=== PATIENT | male | born 1985 | race Two or more races ===

== ENCOUNTER 2020-04-07 10:35 | Emergency (ER) | payer OTHER ==
[2020-04-07 10:52] VITALS: BP 120/60; PULSE 57; TEMP 97.3; BMI 24.3
--- OUTSIDE RECORDS SUMMARY | 2020-04-07 10:54 | XMS ---
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 Range Interpretation Code Description Data Source(s) Mean blood 99 mm[Hg] 99 mm[Hg] [place] [facility] - pressure [facility] Peripheral Pulse 77 bpm Normal (applies to 77 bpm [place] [facility] - Rate non-numeric results) [facility] Diastolic blood 82 mm[Hg] Normal (applies to 82 mm[Hg] [place] [facility] - pressure non-numeric results) [facility] Systolic blood 133 mm[Hg] Normal (applies to 133 mm[Hg] [place] [facility] - pressure non-numeric results) [facility] Respiratory rate 18 br/min Normal (applies to 18 br/min [place] [facility] - non-numeric results) [facility] Body temperature - 98.2 [degF] 98.2 [degF] [place] [facility] - Temporal artery [facility] Mean blood 107 mm[Hg] 107 mm[Hg] [place] [facility] - pressure [facility] Diastolic blood 86 mm[Hg] Normal (applies to 86 mm[Hg] [place] [facility] - pressure non-numeric results) [place] [facility] Systolic blood 148 mm[Hg] Above high normal 148 mm[Hg] [place] [facility] - pressure [facility] Respiratory rate 18 br/min Normal (applies to 18 br/min [place] [facility] - non-numeric results) [place] [facility] Peripheral Pulse 72 bpm Normal (applies to 72 bpm [place] [facility] - Rate non-numeric results) [facility] Diastolic blood 68 mm[Hg] Normal (applies to 68 mm[Hg] [place] [facility] - pressure non-numeric results) [facility] Systolic blood 135 mm[Hg] Normal (applies to 135 mm[Hg] [place] [facility] - pressure non-numeric results) [place] [facility] Respiratory rate 19 br/min Normal (applies to 19 br/min [place] [facility] - non-numeric results) [facility] Peripheral Pulse 55 bpm Below low normal 55 bpm [place] [facility] - Rate [facility] Mean blood 90 mm[Hg] 90 mm[Hg] [place] [facility] - pressure [facility] Body temperature - 98.5 [degF] 98.5 [degF] [facility] - Temporal artery [facility] Heart rate Cardiac 83 bpm Normal (applies to 83 bpm [place] [facility] - apex by by non-numeric results) [facility] ter Body surface area 1.97 1.97 [place] [facility] - [facility] Body weight 82 kg 82 kg [place] [facility] - Measured [facility] Body height 170 cm 170 cm [facility] Body temperature - 98.4 [degF] 98.4 [degF] [facility] - Temporal artery [facility] Body weight 82.000 kg 82.000 kg [place] [facility] - Measured [facility] Body height 170.000 cm 170.000 cm [facility] r Respiratory rate 20 br/min Normal (applies to 20 br/min [place] [facility] - non-numeric results) [facility] Diastolic blood 58 mm[Hg] Below low normal 58 mm[Hg] [place] [facility] - pressure [facility] Systolic blood 130 mm[Hg] Normal (applies to 130 mm[Hg] [place] [facility] - pressure non-numeric results) [place] Peripheral Pulse 88 bpm Normal (applies to 88 bpm [place] [facility] - Rate non-numeric results) [facility] Mean blood 82 mm[Hg] 82 mm[Hg] [place] [facility] - pressure [facility] Body weight 75.000 kg 75.000 kg [place] [facility] - Measured [facility] Body height 176.000 cm 176.000 cm [facility] an [facility] Body temperature - 99.5 [degF] 99.5 [degF] [facility] - Temporal artery [facility] Mean blood 109 mm[Hg] 109 mm[Hg] [place] [facility] - pressure [facility] Body height 176 cm 176 cm [place] [facility] - [facility] Respiratory rate 20 br/min Normal (applies to 20 br/min [place] [facility] - non-numeric results) [facility] Peripheral Pulse 93 bpm Normal (applies to 93 bpm [place] [facility] - Rate non-numeric results) [facility] Diastolic blood 89 mm[Hg] Normal (applies to 89 mm[Hg] [place] [facility] - pressure non-numeric results) [facility] Systolic blood 149 mm[Hg] Above high normal 149 mm[Hg] [place] [facility] - pressure [facility] Body surface area 1.91 1.91 [place] [facility] - [facility] Body weight 75 kg 75 kg [place] [facility] - Measured [facility] Peripheral Pulse 72 bpm Normal (applies to 72 bpm [place] [facility] - Rate non-numeric results) [facility] Respiratory rate 18 br/min Normal (applies to 18 br/min [place] [facility] - non-numeric results) [facility] Body temperature - 97.1 [degF] 97.1 [degF] [facility] Mean blood 94 mm[Hg] 94 mm[Hg] [place] [facility] - pressure [facility] Diastolic blood 74 mm[Hg] Normal (applies to 74 mm[Hg] [place] [facility] - pressure non-numeric results) [place] Systolic blood 134 mm[Hg] Normal (applies to 134 mm[Hg] [place] [facility] - pressure non-numeric results) [facility] Body temperature - 98.2 [degF] 98.2 [degF] [facility] Temporal artery [facility] Body height 175 cm 175 cm [facility] Body weight 82 kg 82 kg [facility] an - Measured [facility] Body surface area 2 2 [facility] Peripheral Pulse 72 bpm Normal (applies to 72 bpm [place] [facility] - Rate non-numeric results) [place] Diastolic blood 72 mm[Hg] Normal (applies to 72 mm[Hg] [place] [facility] - pressure non-numeric results) [place] Systolic blood 134 mm[Hg] Normal (applies to 134 mm[Hg] [place] [facility] - pressure non-numeric results) [facility] Mean blood 93 mm[Hg] 93 mm[Hg] [facility] Body weight 82.000 kg 82.000 kg [facility] Measured [facility] Body height 175.000 cm 175.000 cm [facility] Patient Treatment Plan of Care Planned Activity Planned Date Details Description Data Source (s) No Known Medications 01/21/2019 [place] [facility] - 06:48:34 PM EDT [facility] Lomotil oral tablet 12/08/2018 [facility] - 12:54:34 AM EDT [facility] Zofran 4 mg oral tablet 12/08/2018 [place] [facility] - 12:54:27 AM EDT [facility] Cyclobenzaprine 03/17/2018 [facility] Ma lalit - hydrochloride 10 MG Oral 04:45:39 PM EDT [facility] Ibuprofen 800 MG Oral 03/17/2018 [facility] - Tablet 04:45:34 PM EDT [facility]
--- NOTE | 2020-04-07 11:11 | PDOC ---
History of Present Illness - General History Source: Patient Exam Limitations: No Limitations - History of Present Illness Initial Comments: 04/07/20 11:09 34-year-old male [id number] denies past medical history presents complaining of right fourth finger injury 2 days ago. He accidentally broke a glass with his hand and is concerned he may have glass on his finger. Denies any other complaint or injury. ROS: as above PE: GENERAL: well-appearing, NAD HEAD: NCAT EYES: Pupils equal, round and reactive to light, sclera anicteric, conjunctiva clear ENT: pharynx: no erythema, no exudate, uvula midline NECK: supple CHEST: nontender RESP: clear, no w/r/r CARDIO: rrr, no m/g/r ABD: +BS, soft, nontender, non distended BACK: no midline spinal ttp, no CVAT EXTREMITIES: Normal range of motion, right fourth subungual hematoma NEUROLOGICAL: Normal speech, normal gait SKIN: Warm, Dry 04/07/20 11:43 Is this a multiple visit Asthma Patient?: No <Roxana Del Cid - Last Filed: 04/07/20 11:43> <Trista Thorne - Last Filed: 04/07/20 11:58> - General Chief Complaint: Injury Stated Complaint: FINGER INJURY Time Seen by Provider: 04/07/20 10:53 Past History - Medical History COPD: No - Psycho-Social/Smoking History Smoking History: Current every day smoker Have you smoked in the past 12 months: Yes Number of Cigarettes Smoked Daily: 5 Information on smoking cessation initiated: Yes - Substance Abuse Hx (Audit-C & DAST Scrn) How often the patient has a drink containing alcohol: Never Score: In Men: 4 or > Positive; In Women: 3 or > Positive: 0 Screen Result (Pos requires Nsg. Audit-10AR): Negative In the last yr the pt used illegal drug/Rx for NonMed reason: Yes Score: Yes response is considered Positive: 1 Screen Result (Positive result requires Nsg. DAST-10): Positive <Roxana Del Cid - Last Filed: 04/07/20 11:43> <Trista Thorne - Last Filed: 04/07/20 11:58> - Medical History Allergies/Adverse Reactions: Allergies Allergy/AdvReac Type Severity Reaction Status Date / Time No Known Allergies Allergy Verified 04/07/20 10:43 Home Medications: Ambulatory Orders NK [No Known Home Medication] 04/07/20 *Physical Exam - Vital Signs Last Vital Signs Temp Pulse Resp BP Pulse Ox 97.3 F L 57 L 16 120/60 100 04/07/20 10:44 04/07/20 10:44 04/07/20 10:44 04/07/20 10:44 04/07/20 10:44 <Roxana Del Cid - Last Filed: 04/07/20 11:43> - Vital Signs Last Vital Signs Temp Pulse Resp BP Pulse Ox 97.3 F L 57 L 16 120/60 100 04/07/20 10:44 04/07/20 10:44 04/07/20 10:44 04/07/20 10:44 04/07/20 10:44 <Trista Thorne - Last Filed: 04/07/20 11:58> ED Treatment Course - RADIOLOGY Radiology Studies Ordered: Category Date Time Status FINGER(S) RIGHT [RAD] Stat Radiology 04/07/20 11:08 Ordered <Roxana Del Cid - Last Filed: 04/07/20 11:43> Medical Decision Making - Medical Decision Making 04/07/20 11:44 34-year-old male [id number] denies past medical history presents complaining of right fourth finger injury 2 days ago. He accidentally broke a glass with his hand and is concerned he may have glass on his finger. Denies any other complaint or injury. Right fourth finger x-ray: Tuft fracture Advised patient to take ibuprofen 600 mg every 6 hours as needed for pain Explained to patient subungual hematoma will resolve <Roxana Del Cid - Last Filed: 04/07/20 11:43> - Medical Decision Making I reviewed the case with the mid-level practitioner and agree with the mid-level practitioner's assessment, diagnosis and disposition. <Trisat Thorne - Last Filed: 04/07/20 11:58> Discharge - Discharge Information Problems reviewed: Yes - Admission No <Roxana Del Cid - Last Filed: 04/07/20 11:43> <Trista Thorne - Last Filed: 04/07/20 11:58> - Discharge Information Clinical Impression/Diagnosis: Finger fracture, right Qualifiers: Encounter type: initial encounter Finger: ring finger Fracture type: closed Phalanx: unspecified phalanx Fracture alignment: nondisplaced Qualified Code(s): S62.604A - Fracture of unspecified phalanx of right ring finger, initial encounter for closed fracture - Patient Discharge Instructions Additional Instructions: Alternate between acetaminophen and ibuprofen every 6 hours as needed for pain
== END 2020-04-07 12:33 | disposition home or self-care (01) ==
LOC: JER 10:35
DX: S62.604A Fracture of unspecified phalanx of right ring finger, initial encounter for closed fracture (principal)
CPT/HCPCS: 73140-TC-RT-FY; 99283-25